=== PATIENT | male | born 1960 | race Caucasian/White ===

== ENCOUNTER 2018-09-18 19:58 | Inpatient (IN) ==
[2018-09-18] MEDS ORDERED: SODIUM CHLORIDE 0.9% 1,000 ML IV STA ×3 (20:51→21:20)
[2018-09-18 21:01] LABS: Basophils % 0.2 % (0.0-0.8); Eosinophils # 0.1 10*3/uL (0.0-0.87); Eosinophils % 0.5 % (0.00-10.9); Hematocrit 44.3 VOL% (42.0-52.0); Hemoglobin 15.7 GM/DL (14.0-18.0); Immature Granulocytes % 1.1 %; Immature Granulocytes Absolute 0.17 #; Lymphocytes # 2.3 10*3/uL (1.4-4.0); Lymphocytes % 14.4 % (21.2-54.2); Mean Corpuscular HGB Conc 35.4 GM/DL (32-36); Mean Corpuscular Hemoglobin 33 PG (27-34); Mean Corpuscular Volume 92.5 FL (87-102); Mean Platelet Volume 10.1 FL (9.6-12.0); Monocytes # 1.6 10*3/uL (0.11-0.8); Monocytes % 9.9 % (1.7-12.7); Neutrophils # 11.8 10*3/uL (1.4-7.4); Neutrophils % 73.9 % (38.7-73.9); Platelet Count 348 T/CUMM (130-400); Red Blood Count 4.79 MC/CUMM (3.8-5.5); Red Cell Distribution Width 14.6 % (9.3-17.3)
[2018-09-18 21:19] LABS: Albumin 2.9 G/DL (3.4-5.0); Bilirubin,Total 0.7 MG/DL (0.2-1.0); Calcium 8.4 MG/DL (8.5-10.1); Osmolality,Calculated 263.8 MOS/KG (273-304); Potassium 3.4 MMOL/L (3.5-5.1); Total Protein 6.7 G/DL (6.4-8.3)
[2018-09-18] MEDS ORDERED: NOREPINEPHRINE 8 MG in SODIUM CHLORIDE 0.9% 242 ML IV PRN (21:20)
[2018-09-18] MEDS ORDERED: VANCOMYCIN INJ 1,000 MG in SODIUM CHLORIDE 0.9% 250 ML IV STA (21:21)
[2018-09-18] MEDS ORDERED: CEFEPIME 2,000 MG in SODIUM CHLORIDE 0.9% 100 ML IV STA (21:21)
[2018-09-18 22:19] LABS: VBG Base Excess 0.3 MEQ/L (0-4); VBG HCO3 26.3 MEQ/L (24-28); VBG Oxygen Saturation 83.1 %; VBG PCO2 46.9 MMHG (41-51); VBG PH 7.366; VBG PO2 56.1 MMHG (17-40)
[2018-09-18 23:00] LABS: Amorphous Crystals,Urine Occasional /HPF (Few); Apearance,Urine CLOUDY (Clear); Bilirubin,Urine Negative (Negative); Blood, Urine Small mg/dL (Negative); Glucose,Urine (UA) Negative (Negative); Hyaline Casts,Urine 3 /LPF (0-3); Ketones,Urine Negative (Negative); Mucus,Urine Occasional /LPF (Occasional); Nitrite,Urine Negative (Negative); Protein,Urine Negative; RBC,Urine 3 /HPF (0-4); Squamous Epithelial Cell,Urine Occasional /HPF (0-10); Urine Color Amber (Yellow); Urine Specific Gravity 1.012 (1.001-1.035); WBC,Urine 8 /HPF (0-6)
[2018-09-18 23:01] LABS: Barbiturates Screen,Urine Negative (Negative); Benzodiazepines Screen,Urine Positive (Negative); Cannabinoid Screen,Urine Negative (Negative); Opiate Screen,Urine Negative (Negative); Phencyclidine Screen,Urine Negative (Negative)
[2018-09-18] MEDS ORDERED: ACETAMINOPHEN 325 MG TABLET PO PRN (23:11)
[2018-09-18] MEDS ORDERED: ONDANSETRON 4 MG/2 ML VIAL IV PRN (23:11)
[2018-09-18] MEDS ORDERED: THIAMINE 200 MG/2 ML VIAL IV STA (23:15)
[2018-09-19] MEDS ORDERED: VANCOMYCIN INJ 500 MG in SODIUM CHLORIDE 0.9% 100 ML IV STA (00:09)
[2018-09-19] MEDS: ENOXAPARIN 40 MG/0.4 ML SYRINGE SUBCUT SCH ×2 (00:53→22:48)
[2018-09-19] MEDS: SODIUM CHLOR 0.9% KCL 20 MEQ 20 MEQ/1,000 ML BAG IV SCH ×3 (01:58→18:09)
[2018-09-19] MEDS: PIPERACILLIN/TAZOBACTAM 3,375 MG in SODIUM CHLORIDE 0.9% 100 ML IV SCH ×3 (02:07→18:13)
[2018-09-19] MEDS: LORazepam 2 MG/1 ML VIAL IV PRN ×4 (02:45→14:08)
[2018-09-19 05:15] LABS: Basophils % 0.3 % (0.0-0.8); Eosinophils % 0.3 % (0.00-10.9); Hematocrit 41.1 VOL% (42.0-52.0); Hemoglobin 14.2 GM/DL (14.0-18.0); Immature Granulocytes % 1.1 %; Immature Granulocytes Absolute 0.11 #; Lymphocytes # 1.3 10*3/uL (1.4-4.0); Lymphocytes % 12.5 % (21.2-54.2); Mean Corpuscular HGB Conc 34.5 GM/DL (32-36); Mean Corpuscular Hemoglobin 33 PG (27-34); Mean Corpuscular Volume 94.3 FL (87-102); Mean Platelet Volume 9.9 FL (9.6-12.0); Monocytes % 9.6 % (1.7-12.7); Neutrophils # 7.8 10*3/uL (1.4-7.4); Neutrophils % 76.2 % (38.7-73.9); Platelet Count 255 T/CUMM (130-400); Red Blood Count 4.36 MC/CUMM (3.8-5.5); Red Cell Distribution Width 14.4 % (9.3-17.3); White Blood Count 10.2 T/CUMM (4-12)
[2018-09-19 06:12] LABS: Albumin 2.5 G/DL (3.4-5.0); Bilirubin,Total 0.7 MG/DL (0.2-1.0); Calcium 7.8 MG/DL (8.5-10.1); Osmolality,Calculated 267.5 MOS/KG (273-304); Potassium 3.4 MMOL/L (3.5-5.1); Total Protein 6.3 G/DL (6.4-8.3)
[2018-09-19] MEDS: PANTOPRAZOLE 40 MG TABLET PO SCH (10:01)
[2018-09-19] MEDS: THIAMINE 200 MG/2 ML VIAL IV SCH (10:01)
[2018-09-19] MEDS: HALOPERIDOL 5 MG/ML AMP IV PRN (10:35)
[2018-09-19] MEDS: FOLIC ACID INJ 1 MG in SYRINGE 1 EACH IV SCH (10:39)
[2018-09-19] MEDS ORDERED: ZIPRASIDONE 20 MG/1 ML VIAL IM ONE (14:08)
[2018-09-19] MEDS: VANCOMYCIN INJ 1,500 MG in SODIUM CHLORIDE 0.9% 500 ML IV SCH (23:01)
[2018-09-20] MEDS: HALOPERIDOL 5 MG/ML AMP IV PRN ×3 (00:32→21:27)
[2018-09-20] MEDS: SODIUM CHLOR 0.9% KCL 20 MEQ 20 MEQ/1,000 ML BAG IV SCH ×3 (01:51→18:36)
[2018-09-20] MEDS: PIPERACILLIN/TAZOBACTAM 3,375 MG in SODIUM CHLORIDE 0.9% 100 ML IV SCH ×3 (02:20→18:45)
[2018-09-20 08:13] LABS: Osmolality,Calculated 283.1 MOS/KG (273-304); Potassium 3.6 MMOL/L (3.5-5.1)
[2018-09-20] MEDS: FOLIC ACID INJ 1 MG in SYRINGE 1 EACH IV SCH (08:20)
[2018-09-20] MEDS: THIAMINE 200 MG/2 ML VIAL IV SCH (08:22)
[2018-09-20] MEDS: PANTOPRAZOLE 40 MG TABLET PO SCH (12:35)
[2018-09-20] MEDS: LORazepam 2 MG/1 ML VIAL IV PRN ×2 (12:44→22:57)
[2018-09-20] MEDS: NIFEdipine 10 MG CAPSULE PO PRN (23:13)
[2018-09-20] MEDS: ALBUTEROL/IPRATROPIUM 3 ML NEB RESP TX PRN (23:51)
[2018-09-21] MEDS ORDERED: OLANZapine 10 MG VIAL IM ONE (00:16)
[2018-09-21 00:49] LABS: Allen Test Positive
[2018-09-21 00:50] LABS: ABG Base Excess -1.8 MMOL/L (-2.5-2.5); ABG HCO3 22.8 MMOL/L (20-26); ABG Oxygen Saturation 92.5 % (95-100); ABG PCO2 32.9 MM HG (35-48); ABG PH 7.426 (7.35-7.45); ABG PO2 64.4 MM HG (80-95); ABG TCO2 18.6 MMOL/L (23-27)
[2018-09-21] MEDS: ENOXAPARIN 40 MG/0.4 ML SYRINGE SUBCUT SCH ×2 (00:50→22:46)
[2018-09-21] MEDS: VANCOMYCIN INJ 1,500 MG in SODIUM CHLORIDE 0.9% 500 ML IV SCH (01:31)
[2018-09-21] MEDS: SODIUM CHLOR 0.9% KCL 20 MEQ 20 MEQ/1,000 ML BAG IV SCH ×4 (03:30→22:52)
[2018-09-21] MEDS: PIPERACILLIN/TAZOBACTAM 3,375 MG in SODIUM CHLORIDE 0.9% 100 ML IV SCH ×3 (03:48→18:39)
[2018-09-21] MEDS: MORPHINE 4 MG/1 ML VIAL IV PRN ×3 (03:49→20:22)
[2018-09-21] MEDS: LORazepam 2 MG/1 ML VIAL IV PRN (03:49)
[2018-09-21] MEDS: HALOPERIDOL 5 MG/ML AMP IV PRN (04:44)
[2018-09-21] MEDS: NIFEdipine 10 MG CAPSULE PO PRN ×2 (04:45→22:52)
[2018-09-21 05:17] LABS: Basophils % 0.1 % (0.0-0.8); Eosinophils % 0.3 % (0.00-10.9); Hematocrit 37.3 VOL% (42.0-52.0); Hemoglobin 12.3 GM/DL (14.0-18.0); Immature Granulocytes % 0.8 %; Immature Granulocytes Absolute 0.06 #; Lymphocytes # 1.2 10*3/uL (1.4-4.0); Lymphocytes % 14.9 % (21.2-54.2); Mean Corpuscular Hemoglobin 32 PG (27-34); Mean Corpuscular Volume 97.4 FL (87-102); Mean Platelet Volume 9.7 FL (9.6-12.0); Monocytes # 0.7 10*3/uL (0.11-0.8); Monocytes % 9.6 % (1.7-12.7); Neutrophils # 5.8 10*3/uL (1.4-7.4); Neutrophils % 74.3 % (38.7-73.9); Platelet Count 210 T/CUMM (130-400); Red Blood Count 3.83 MC/CUMM (3.8-5.5); Red Cell Distribution Width 14.9 % (9.3-17.3); White Blood Count 7.7 T/CUMM (4-12)
[2018-09-21 05:37] LABS: Osmolality,Calculated 278.4 MOS/KG (273-304); Potassium 3.7 MMOL/L (3.5-5.1)
[2018-09-21] MEDS: PANTOPRAZOLE 40 MG TABLET PO SCH (08:44)
[2018-09-21] MEDS: THIAMINE 200 MG/2 ML VIAL IV SCH (08:47)
[2018-09-21] MEDS: FOLIC ACID INJ 1 MG in SYRINGE 1 EACH IV SCH (09:42)
[2018-09-21] MEDS ORDERED: HALOPERIDOL 5 MG/ML AMP IM PRN (09:44)
[2018-09-21] MEDS: MULTIVITAMIN (BEROCCA) TABLET PO SCH (12:03)
[2018-09-21] MEDS: oxyCODONE/ACETAMINOPHEN 5-325 MG TABLET PO PRN (22:46)
[2018-09-21] MEDS: ALBUTEROL/IPRATROPIUM 3 ML NEB RESP TX PRN (22:52)
[2018-09-22] MEDS ORDERED: FUROSEMIDE 40 MG/4 ML VIAL IV ONE (00:20)
[2018-09-22] MEDS ORDERED: FUROSEMIDE 40 MG/4 ML VIAL ONE (00:23)
[2018-09-22 00:43] LABS: Basophils % 0.3 % (0.0-0.8); Eosinophils # 0.1 10*3/uL (0.0-0.87); Eosinophils % 1.1 % (0.00-10.9); Hematocrit 36.1 VOL% (42.0-52.0); Hemoglobin 11.9 GM/DL (14.0-18.0); Immature Granulocytes % 0.7 %; Immature Granulocytes Absolute 0.05 #; Mean Corpuscular Hemoglobin 33 PG (27-34); Mean Corpuscular Volume 98.9 FL (87-102); Mean Platelet Volume 9.6 FL (9.6-12.0); Monocytes # 0.6 10*3/uL (0.11-0.8); Monocytes % 8.7 % (1.7-12.7); Neutrophils # 5.4 10*3/uL (1.4-7.4); Neutrophils % 75.2 % (38.7-73.9); Platelet Count 211 T/CUMM (130-400); Red Blood Count 3.65 MC/CUMM (3.8-5.5); Red Cell Distribution Width 14.9 % (9.3-17.3); White Blood Count 7.2 T/CUMM (4-12)
[2018-09-22 00:44] LABS: ABG Base Excess 0.7 MMOL/L (-2.5-2.5); ABG HCO3 24.9 MMOL/L (20-26); ABG Oxygen Saturation 92.5 % (95-100); ABG PCO2 40.4 MM HG (35-48); ABG PH 7.405 (7.35-7.45); ABG PO2 65.8 MM HG (80-95); ABG TCO2 22.4 MMOL/L (23-27); Allen Test Positive; Pt O2 Delivery Device Venturi Mask
[2018-09-22 00:52] LABS: PT Patient Result 11.3 SECS
[2018-09-22 01:12] LABS: Albumin 2.3 G/DL (3.4-5.0); Bilirubin,Total 0.5 MG/DL (0.2-1.0); Calcium 7.7 MG/DL (8.5-10.1); Osmolality,Calculated 277.3 MOS/KG (273-304); Potassium 3.4 MMOL/L (3.5-5.1); Total Protein 5.9 G/DL (6.4-8.3)
[2018-09-22] MEDS: oxyCODONE/ACETAMINOPHEN 5-325 MG TABLET PO PRN ×3 (02:42→17:18)
[2018-09-22] MEDS: PIPERACILLIN/TAZOBACTAM 3,375 MG in SODIUM CHLORIDE 0.9% 100 ML IV SCH ×3 (02:42→18:23)
[2018-09-22] MEDS: ALBUTEROL/IPRATROPIUM 3 ML NEB RESP TX SCH ×6 (03:50→23:29)
[2018-09-22] MEDS ORDERED: MAGNESIUM SULF RIDER 4 GM in PREMIX 1 EACH IV ONE (07:34)
[2018-09-22] MEDS: MULTIVITAMIN (BEROCCA) TABLET PO SCH (08:00)
[2018-09-22] MEDS: POTASSIUM CHLORIDE 20 MEQ TABLET PO SCH ×3 (08:01→17:18)
[2018-09-22] MEDS: PANTOPRAZOLE 40 MG TABLET PO SCH (08:01)
[2018-09-22] MEDS: NIFEdipine 10 MG CAPSULE PO PRN (17:21)
[2018-09-22] MEDS: LORazepam 1 MG TABLET PO PRN ×2 (17:57→23:06)
[2018-09-22] MEDS: ENOXAPARIN 40 MG/0.4 ML SYRINGE SUBCUT SCH (23:07)
[2018-09-23] MEDS: oxyCODONE/ACETAMINOPHEN 5-325 MG TABLET PO PRN ×3 (00:36→14:44)
[2018-09-23] MEDS: NIFEdipine 10 MG CAPSULE PO PRN (00:37)
[2018-09-23] MEDS: PIPERACILLIN/TAZOBACTAM 3,375 MG in SODIUM CHLORIDE 0.9% 100 ML IV SCH ×3 (03:27→22:52)
[2018-09-23] MEDS: ALBUTEROL/IPRATROPIUM 3 ML NEB RESP TX SCH ×6 (03:45→23:02)
[2018-09-23 07:19] LABS: Basophils % 0.3 % (0.0-0.8); Eosinophils # 0.1 10*3/uL (0.0-0.87); Eosinophils % 0.9 % (0.00-10.9); Hematocrit 37.8 VOL% (42.0-52.0); Hemoglobin 12.8 GM/DL (14.0-18.0); Immature Granulocytes % 0.9 %; Immature Granulocytes Absolute 0.07 #; Lymphocytes # 0.9 10*3/uL (1.4-4.0); Lymphocytes % 11.1 % (21.2-54.2); Mean Corpuscular HGB Conc 33.9 GM/DL (32-36); Mean Corpuscular Hemoglobin 33 PG (27-34); Mean Corpuscular Volume 97.4 FL (87-102); Mean Platelet Volume 9.8 FL (9.6-12.0); Monocytes # 0.6 10*3/uL (0.11-0.8); Monocytes % 7.2 % (1.7-12.7); Neutrophils # 6.1 10*3/uL (1.4-7.4); Neutrophils % 79.6 % (38.7-73.9); Platelet Count 235 T/CUMM (130-400); Red Blood Count 3.88 MC/CUMM (3.8-5.5); Red Cell Distribution Width 14.8 % (9.3-17.3); White Blood Count 7.7 T/CUMM (4-12)
[2018-09-23 07:42] LABS: Calcium 8.2 MG/DL (8.5-10.1); Osmolality,Calculated 266.1 MOS/KG (273-304); Potassium 3.6 MMOL/L (3.5-5.1)
[2018-09-23] MEDS: MULTIVITAMIN (BEROCCA) TABLET PO SCH (08:24)
[2018-09-23] MEDS: PANTOPRAZOLE 40 MG TABLET PO SCH (08:24)
[2018-09-23] MEDS ORDERED: ASPIRIN EC 325 MG TABLET PO SCH (09:00)
[2018-09-23 09:50] LABS: Troponin I < 0.015 NG/ML (0.00-0.045)
[2018-09-23] MEDS ORDERED: LOSARTAN 50 MG TABLET PO SCH (11:00)
[2018-09-23] MEDS ORDERED: hydroCHLOROthiazide 12.5 MG CAPSULE PO SCH (11:00)
[2018-09-23] MEDS: LORazepam 1 MG TABLET PO PRN ×2 (11:49→20:42)
[2018-09-23] MEDS: ATORVASTATIN 40 MG TABLET PO SCH (11:49)
[2018-09-23] MEDS ORDERED: MAGNESIUM SULF RIDER 4 GM in PREMIX 1 EACH IV PRN (15:36)
[2018-09-23] MEDS ORDERED: MAGNESIUM SULF RIDER 2 GM in PREMIX 1 EACH IV PRN (15:36)
[2018-09-23] MEDS ORDERED: niCARdipine INJ 25 MG in SODIUM CHLORIDE 0.9% 240 ML IV PRN (20:23)
[2018-09-23] MEDS: SODIUM CHLORIDE 0.9% 1,000 ML IV SCH (20:40)
[2018-09-23] MEDS: MORPHINE 4 MG/1 ML VIAL IV PRN (20:43)
[2018-09-23] MEDS ORDERED: MANNITOL IV ONE ×2 (21:00)
[2018-09-23] MEDS ORDERED: METOPROLOL SUCCINATE XL 100 MG TABLET PO SCH ×2 (21:00)
[2018-09-23] MEDS: VALPROIC ACID INJ 500 MG in SODIUM CHLORIDE 0.9% 100 ML IV SCH (22:19)
[2018-09-24] MEDS: ALBUTEROL/IPRATROPIUM 3 ML NEB RESP TX SCH ×6 (03:12→22:31)
[2018-09-24] MEDS: MORPHINE 4 MG/1 ML VIAL IV PRN ×5 (03:50→19:40)
[2018-09-24 04:09] LABS: Basophils % 0.1 % (0.0-0.8); Eosinophils # 0.1 10*3/uL (0.0-0.87); Eosinophils % 1.1 % (0.00-10.9); Hematocrit 38.8 VOL% (42.0-52.0); Hemoglobin 12.7 GM/DL (14.0-18.0); Immature Granulocytes % 0.7 %; Immature Granulocytes Absolute 0.06 #; Lymphocytes # 0.8 10*3/uL (1.4-4.0); Lymphocytes % 9.4 % (21.2-54.2); Mean Corpuscular HGB Conc 32.7 GM/DL (32-36); Mean Corpuscular Hemoglobin 33 PG (27-34); Mean Corpuscular Volume 99.5 FL (87-102); Mean Platelet Volume 9.7 FL (9.6-12.0); Monocytes # 0.6 10*3/uL (0.11-0.8); Monocytes % 7.2 % (1.7-12.7); Neutrophils # 7.1 10*3/uL (1.4-7.4); Neutrophils % 81.5 % (38.7-73.9); Platelet Count 230 T/CUMM (130-400); Red Cell Distribution Width 14.8 % (9.3-17.3); White Blood Count 8.8 T/CUMM (4-12)
[2018-09-24 04:30] LABS: Calcium 8.1 MG/DL (8.5-10.1); Osmolality,Calculated 273.5 MOS/KG (273-304); Potassium 3.4 MMOL/L (3.5-5.1)
[2018-09-24] MEDS: VALPROIC ACID INJ 500 MG in SODIUM CHLORIDE 0.9% 100 ML IV SCH ×3 (05:18→21:58)
[2018-09-24 05:58] LABS: Troponin I < 0.015 NG/ML (0.00-0.045)
[2018-09-24] MEDS: PIPERACILLIN/TAZOBACTAM 3,375 MG in SODIUM CHLORIDE 0.9% 100 ML IV SCH (06:24)
[2018-09-24] MEDS: POTASSIUM CHLORIDE 20 MEQ TABLET PO PRN ×2 (06:25→08:12)
[2018-09-24] MEDS: LORazepam 1 MG TABLET PO PRN ×2 (08:13→16:12)
[2018-09-24] MEDS: PANTOPRAZOLE 40 MG TABLET PO SCH (08:13)
[2018-09-24] MEDS: MULTIVITAMIN (BEROCCA) TABLET PO SCH (08:13)
[2018-09-24] MEDS: ATORVASTATIN 40 MG TABLET PO SCH (08:13)
[2018-09-24] MEDS: SODIUM CHLORIDE 0.9% 1,000 ML IV SCH ×2 (08:54→22:35)
[2018-09-24] MEDS ORDERED: POTASSIUM CHLORIDE 20 MEQ TABLET PO SCH (09:00)
[2018-09-24] MEDS ORDERED: NON-FORMULARY MEDICATION (Losartan/Hydrochlorothiazide [Losartan-Hctz 100-12.5 Mg Tab] 1 T PO SCH (09:00)
[2018-09-24] MEDS ORDERED: amLODIPine 10 MG TABLET PO SCH (09:00)
[2018-09-24] MEDS: POTASSIUM CHLORIDE 20 MEQ TABLET PO SCH ×3 (09:07→16:12)
[2018-09-24] MEDS: cefTRIAXone 1,000 MG in SYRINGE 1 EACH IV SCH (09:25)
[2018-09-25] MEDS: MORPHINE 4 MG/1 ML VIAL IV PRN ×4 (01:10→20:09)
[2018-09-25] MEDS: ALBUTEROL/IPRATROPIUM 3 ML NEB RESP TX SCH ×6 (02:24→23:33)
[2018-09-25 04:09] LABS: Basophils % 0.1 % (0.0-0.8); Eosinophils # 0.1 10*3/uL (0.0-0.87); Hematocrit 36.6 VOL% (42.0-52.0); Hemoglobin 11.9 GM/DL (14.0-18.0); Immature Granulocytes % 0.7 %; Immature Granulocytes Absolute 0.07 #; Lymphocytes # 0.9 10*3/uL (1.4-4.0); Lymphocytes % 9.6 % (21.2-54.2); Mean Corpuscular HGB Conc 32.5 GM/DL (32-36); Mean Corpuscular Hemoglobin 33 PG (27-34); Mean Platelet Volume 9.8 FL (9.6-12.0); Monocytes # 0.7 10*3/uL (0.11-0.8); Monocytes % 7.1 % (1.7-12.7); Neutrophils # 7.7 10*3/uL (1.4-7.4); Neutrophils % 81.5 % (38.7-73.9); Platelet Count 217 T/CUMM (130-400); Red Blood Count 3.66 MC/CUMM (3.8-5.5); Red Cell Distribution Width 14.9 % (9.3-17.3); White Blood Count 9.4 T/CUMM (4-12)
[2018-09-25 04:18] LABS: Calcium 7.9 MG/DL (8.5-10.1); Osmolality,Calculated 267.8 MOS/KG (273-304); Potassium 3.8 MMOL/L (3.5-5.1)
[2018-09-25] MEDS: VALPROIC ACID INJ 500 MG in SODIUM CHLORIDE 0.9% 100 ML IV SCH ×3 (05:40→20:10)
[2018-09-25] MEDS: MULTIVITAMIN (BEROCCA) TABLET PO SCH (08:57)
[2018-09-25] MEDS: PANTOPRAZOLE 40 MG TABLET PO SCH (08:57)
[2018-09-25] MEDS: cefTRIAXone 1,000 MG in SYRINGE 1 EACH IV SCH (08:57)
[2018-09-25] MEDS: ATORVASTATIN 40 MG TABLET PO SCH (08:57)
[2018-09-25] MEDS: SODIUM CHLORIDE 0.9% 1,000 ML IV SCH (12:17)
[2018-09-26] MEDS: SODIUM CHLORIDE 0.9% 1,000 ML IV SCH ×2 (00:31→13:25)
[2018-09-26] MEDS: ALBUTEROL/IPRATROPIUM 3 ML NEB RESP TX SCH ×6 (03:30→23:15)
[2018-09-26 04:21] LABS: Basophils % 0.1 % (0.0-0.8); Eosinophils # 0.1 10*3/uL (0.0-0.87); Hematocrit 36.2 VOL% (42.0-52.0); Hemoglobin 11.8 GM/DL (14.0-18.0); Immature Granulocytes % 0.8 %; Immature Granulocytes Absolute 0.07 #; Lymphocytes # 0.9 10*3/uL (1.4-4.0); Lymphocytes % 9.7 % (21.2-54.2); Mean Corpuscular HGB Conc 32.6 GM/DL (32-36); Mean Corpuscular Hemoglobin 33 PG (27-34); Mean Corpuscular Volume 99.7 FL (87-102); Mean Platelet Volume 9.9 FL (9.6-12.0); Monocytes # 0.6 10*3/uL (0.11-0.8); Monocytes % 6.9 % (1.7-12.7); Neutrophils # 7.5 10*3/uL (1.4-7.4); Neutrophils % 81.5 % (38.7-73.9); Platelet Count 231 T/CUMM (130-400); Red Blood Count 3.63 MC/CUMM (3.8-5.5); White Blood Count 9.2 T/CUMM (4-12)
[2018-09-26 04:45] LABS: Calcium 7.7 MG/DL (8.5-10.1); Osmolality,Calculated 272.5 MOS/KG (273-304); Potassium 3.5 MMOL/L (3.5-5.1)
[2018-09-26] MEDS: VALPROIC ACID INJ 500 MG in SODIUM CHLORIDE 0.9% 100 ML IV SCH ×3 (04:45→21:42)
[2018-09-26] MEDS: LORazepam 1 MG TABLET PO PRN ×2 (04:56→23:00)
[2018-09-26] MEDS: MORPHINE 4 MG/1 ML VIAL IV PRN ×3 (07:15→18:35)
[2018-09-26] MEDS: MULTIVITAMIN (BEROCCA) TABLET PO SCH (08:45)
[2018-09-26] MEDS: ATORVASTATIN 40 MG TABLET PO SCH (08:45)
[2018-09-26] MEDS: PANTOPRAZOLE 40 MG TABLET PO SCH (08:45)
[2018-09-26] MEDS: cefTRIAXone 1,000 MG in SYRINGE 1 EACH IV SCH (08:45)
[2018-09-26] MEDS: METOPROLOL TARTRATE 100 MG TABLET PO SCH ×2 (08:55→21:37)
[2018-09-26] MEDS: LOSARTAN/HCTZ 50-12.5 MG TABLET PO SCH (08:55)
[2018-09-26] MEDS: NIFEdipine 10 MG CAPSULE PO PRN ×2 (10:09→18:36)
[2018-09-27] MEDS: ALBUTEROL/IPRATROPIUM 3 ML NEB RESP TX SCH ×5 (02:53→19:54)
[2018-09-27] MEDS: VALPROIC ACID INJ 500 MG in SODIUM CHLORIDE 0.9% 100 ML IV SCH (05:20)
[2018-09-27] MEDS: SODIUM CHLORIDE 0.9% 1,000 ML IV SCH ×2 (05:21)
[2018-09-27] MEDS: LORazepam 1 MG TABLET PO PRN ×2 (08:41→20:25)
[2018-09-27] MEDS: PANTOPRAZOLE 40 MG TABLET PO SCH (08:41)
[2018-09-27] MEDS: LOSARTAN/HCTZ 50-12.5 MG TABLET PO SCH (08:41)
[2018-09-27] MEDS: ATORVASTATIN 40 MG TABLET PO SCH (08:42)
[2018-09-27] MEDS: cefTRIAXone 1,000 MG in SYRINGE 1 EACH IV SCH (08:42)
[2018-09-27] MEDS: MULTIVITAMIN (BEROCCA) TABLET PO SCH (08:42)
[2018-09-27] MEDS: METOPROLOL TARTRATE 100 MG TABLET PO SCH ×2 (08:42→20:25)
[2018-09-27] MEDS ORDERED: LOSARTAN/HCTZ 50-12.5 MG TABLET PO ONE (11:00)
[2018-09-27] MEDS: amLODIPine 10 MG TABLET PO SCH (11:16)
[2018-09-27] MEDS: VALPROIC ACID 250 MG/5 ML UDCUP PO SCH ×2 (15:21→20:25)
[2018-09-27] MEDS: chlordiazePOXIDE 10 MG CAPSULE PO SCH ×2 (15:21→20:25)
[2018-09-27] MEDS: DESITIN 4OZ/NYSTATIN 15 GRAM MIXTURE PASTE TOP SCH ×2 (15:22→20:26)
[2018-09-27] MEDS: NIFEdipine 10 MG CAPSULE PO PRN ×2 (15:26→22:20)
[2018-09-28] MEDS: ALBUTEROL/IPRATROPIUM 3 ML NEB RESP TX SCH ×4 (07:02→18:50)
[2018-09-28] MEDS: MULTIVITAMIN (BEROCCA) TABLET PO SCH (08:36)
[2018-09-28] MEDS: LOSARTAN/HCTZ 50-12.5 MG TABLET PO SCH (08:36)
[2018-09-28] MEDS: SERTRALINE 100 MG TABLET PO SCH (08:36)
[2018-09-28] MEDS: chlordiazePOXIDE 10 MG CAPSULE PO SCH ×3 (08:36→22:11)
[2018-09-28] MEDS: PANTOPRAZOLE 40 MG TABLET PO SCH (08:36)
[2018-09-28] MEDS: amLODIPine 10 MG TABLET PO SCH (08:37)
[2018-09-28] MEDS: METOPROLOL TARTRATE 100 MG TABLET PO SCH ×2 (08:37→22:12)
[2018-09-28] MEDS: ATORVASTATIN 40 MG TABLET PO SCH (08:37)
[2018-09-28] MEDS: VALPROIC ACID 250 MG/5 ML UDCUP PO SCH ×3 (08:37→22:12)
[2018-09-28] MEDS: cefTRIAXone 1,000 MG in SYRINGE 1 EACH IV SCH (08:38)
[2018-09-28] MEDS: DESITIN 4OZ/NYSTATIN 15 GRAM MIXTURE PASTE TOP SCH (08:56)
[2018-09-28] MEDS: ASPIRIN EC 81 MG TABLET PO SCH (09:54)
[2018-09-28] MEDS ORDERED: ALUMINUM/MAGNES/SIMETH MAX STR 30 ML UDCUP PO PRN (14:06)
[2018-09-28] MEDS: ENOXAPARIN 40 MG/0.4 ML SYRINGE SUBCUT SCH (14:18)
[2018-09-28] MEDS: MORPHINE 4 MG/1 ML VIAL IV PRN (16:22)
[2018-09-29] MEDS: DESITIN 4OZ/NYSTATIN 15 GRAM MIXTURE PASTE TOP SCH (00:04)
[2018-09-29] MEDS: LORazepam 1 MG TABLET PO PRN (00:10)
[2018-09-29] MEDS: ALBUTEROL/IPRATROPIUM 3 ML NEB RESP TX SCH ×3 (07:25→14:07)
[2018-09-29 07:29] LABS: Basophils % 0.5 % (0.0-0.8); Eosinophils # 0.1 10*3/uL (0.0-0.87); Hematocrit 38.9 VOL% (42.0-52.0); Hemoglobin 12.8 GM/DL (14.0-18.0); Immature Granulocytes % 1.2 %; Lymphocytes # 1.2 10*3/uL (1.4-4.0); Lymphocytes % 14.4 % (21.2-54.2); Mean Corpuscular HGB Conc 32.9 GM/DL (32-36); Mean Corpuscular Hemoglobin 32 PG (27-34); Mean Platelet Volume 9.9 FL (9.6-12.0); Monocytes # 0.8 10*3/uL (0.11-0.8); Monocytes % 9.5 % (1.7-12.7); Neutrophils % 73.4 % (38.7-73.9); Platelet Count 333 T/CUMM (130-400); Red Blood Count 4.01 MC/CUMM (3.8-5.5); Red Cell Distribution Width 14.6 % (9.3-17.3); White Blood Count 8.2 T/CUMM (4-12)
[2018-09-29 07:52] LABS: Calcium 8.4 MG/DL (8.5-10.1); Potassium 3.4 MMOL/L (3.5-5.1)
[2018-09-29] MEDS: METOPROLOL TARTRATE 100 MG TABLET PO SCH (09:51)
[2018-09-29] MEDS: MULTIVITAMIN (BEROCCA) TABLET PO SCH (09:51)
[2018-09-29] MEDS: LOSARTAN/HCTZ 50-12.5 MG TABLET PO SCH (09:51)
[2018-09-29] MEDS: chlordiazePOXIDE 10 MG CAPSULE PO SCH (09:52)
[2018-09-29] MEDS: amLODIPine 10 MG TABLET PO SCH (09:52)
[2018-09-29] MEDS: SERTRALINE 100 MG TABLET PO SCH (09:52)
[2018-09-29] MEDS: ASPIRIN EC 81 MG TABLET PO SCH (09:52)
[2018-09-29] MEDS: ATORVASTATIN 40 MG TABLET PO SCH (09:52)
[2018-09-29] MEDS: PANTOPRAZOLE 40 MG TABLET PO SCH (09:53)
[2018-09-29] MEDS: cefTRIAXone 1,000 MG in SYRINGE 1 EACH IV SCH (09:54)
[2018-09-29] MEDS: VALPROIC ACID 250 MG/5 ML UDCUP PO SCH ×2 (09:54→15:19)
[2018-09-29] MEDS: ENOXAPARIN 40 MG/0.4 ML SYRINGE SUBCUT SCH (15:06)
[2018-09-29 16:35] VITALS: BP 128/80
== END 2018-09-29 15:50 | DRG 720 ==
LOC: EDUNIT# → EDBD → N.ED 19:58 → SUATTDRO 23:11 → N.EDINP 23:11 → N.ICU 09-19 01:22 → N.5E 09-22 17:50 → N.CC 09-23 20:22 → N.5E 09-28 17:21
PROVIDERS: ADMIT Internal Medicine; ATTEND Internal Medicine